=== PATIENT | male | born 1995 | race Caucasian/White ===

== ENCOUNTER 2021-08-09 13:54 | Emergency (ER) | payer SELFPAY ==
[2021-08-09] MEDS ORDERED: Sodium Chloride 0.9% 10 ML Syringe FLUSH PRN (14:24)
[2021-08-09] MEDS ORDERED: Ondansetron 4 MG/2 ML SDV IVPUSH ONE ×2 (14:24→17:39)
[2021-08-09] MEDS ORDERED: Sodium Chloride 0.9% 1,000 ML IV SCH (14:30)
--- NOTE | 2021-08-09 14:38 | EDM.PDOC ---
ED HPI GENERAL MEDICAL PROBLEM - General Chief Complaint: Gastrointestinal Problem Stated Complaint: FREDY AMB Time Seen by Provider: 08/09/21 14:18 - History of Present Illness INITIAL COMMENTS - FREE TEXT/NARRATIVE: 26-year-old male brought in by EMS with nausea vomiting abdominal pain and body cramps. Patient developed this nausea and vomiting earlier today following this he was breathing hard and developed this cramping sensation in his arms he could hardly move. This did improve. He was quite frightened by this. His past medical history is otherwise unremarkable. Not aware of any fevers or chills he lost his taste and smell several months ago with Covid. He has not had any breathing difficulties or shortness of breath no diarrhea. - Related Data Allergies Allergy/AdvReac Type Severity Reaction Status Date / Time No Known Allergies Allergy Verified 08/09/21 14:04 Home Meds: Home Meds FLUoxetine HCl [Prozac] 20 mg PO DAILY 07/22/18 [History] Ondansetron [Ondansetron ODT] 4 mg PO Q6H PRN #16 tab.rapdis 08/09/21 [Rx] busPIRone [Buspar] 15 mg PO DAILY 08/09/21 [History] Past Medical History - Past Health History Medical/Surgical History: Denies Medical/Surgical History Social & Family History - Family History Cardiac: Reports: Hypertension Oncologic: Reports: Lymphoma - Tobacco Use Tobacco Use Status *Q: Current Every Day Tobacco User Years of Tobacco use: 10 Packs/Tins Daily: 0.5 - Caffeine Use Caffeine Use: Reports: Soda - Recreational Drug Use Recreational Drug Type: Reports: Marijuana/Hashish Recreational Drug Use Frequency: Socially - Living Situation & Occupation Living situation: Reports: Single, with Family Occupation: Employed ED ROS GENERAL - Review of Systems Review Of Systems: See Below Constitutional: Reports: No Symptoms HEENT: Reports: No Symptoms Respiratory: Reports: No Symptoms Cardiovascular: Reports: No Symptoms GI/Abdominal: Reports: Nausea, Vomiting. Denies: Abdominal Pain, Diarrhea : Reports: No Symptoms Musculoskeletal: Reports: Other (He had extremity weakness spasm) Skin: Reports: No Symptoms Neurological: Reports: No Symptoms ED EXAM, GENERAL - Physical Exam Exam: See Below Exam Limited By: No Limitations General Appearance: Alert, No Apparent Distress, Other (Patient is doing well at this time) Eye Exam: Bilateral Eye: EOMI, Normal Inspection, PERRL Ears: Normal External Exam, Normal Canal, Hearing Grossly Normal, Normal TMs Nose: Normal Inspection, Normal Mucosa, No Blood Throat/Mouth: Normal Inspection, Normal Lips, Normal Teeth, Normal Gums, Normal Oropharynx, Normal Voice, No Airway Compromise Head: Atraumatic, Normocephalic Neck: Normal Inspection, Supple, Non-Tender, Full Range of Motion. No: Lymphadenopathy (L), Lymphadenopathy (R), Tender Lateral, Tender Midline Respiratory/Chest: No Respiratory Distress, Lungs Clear, Normal Breath Sounds Cardiovascular: Regular Rate, Rhythm, No Edema, No Murmur GI/Abdominal: Normal Bowel Sounds, Soft, Non-Tender Back Exam: Normal Inspection. No: CVA Tenderness (L), CVA Tenderness (R) Extremities: Normal Inspection, No Pedal Edema Neurological: Alert, Oriented, Normal Cognition Course - Vital Signs Last Recorded V/S: Last Vital Signs Temp 36.1 C 08/09/21 14:02 Pulse 91 08/09/21 17:30 Resp 16 08/09/21 17:30 BP 107/70 08/09/21 17:30 Pulse Ox 100 08/09/21 17:30 - Orders/Labs/Meds Orders: Active Orders 24 hr Category Date Time Status Communication Order [RC] ASDIRECTED Care 08/09/21 14:24 Active Communication Order [RC] ASDIRECTED Care 08/09/21 14:24 Active Communication Order [RC] ASDIRECTED Care 08/09/21 14:24 Active Communication Order [RC] ASDIRECTED Care 08/09/21 14:24 Active Orthostatic Vital Signs [RC] ASDIRECTED Care 08/09/21 14:24 Active Peripheral IV Care [RC] . DIRECTED Care 08/09/21 14:24 Active Vital Signs [RC] Q15M Care 08/09/21 18:19 Active EPINEPHrine [Adrenalin] Med 08/09/21 18:19 Active 0.3 mg IM ASDIRECTED PRN Famotidine [Pepcid] Med 08/09/21 18:19 Active 20 mg IVPUSH ASDIRECTED PRN Sodium Chloride 0.9% [Saline Flush] Med 08/09/21 14:24 Active 10 ml FLUSH ASDIRECTED PRN Sodium Chloride 0.9% [Saline Flush] Med 08/09/21 18:30 Active 30 ml FLUSH ASDIRECTED diphenhydrAMINE [Benadryl] Med 08/09/21 18:19 Active 50 mg IVPUSH ASDIRECTED PRN methylPREDNISolone Sod Succ [Solu-MEDROL] Med 08/09/21 18:19 Active 125 mg IVPUSH ASDIRECTED PRN Peripheral IV Insertion Adult [OM.PC] Stat Oth 08/09/21 14:24 Ordered Medication Orders Diphenhydramine HCl (Diphenhydramine 50 Mg/Ml Sdv) 50 mg IVPUSH ASDIRECTED PRN PRN Reason: hypersensitivity reaction Epinephrine HCl (Epinephrine 1 Mg/Ml Sdv) 0.3 mg IM ASDIRECTED PRN PRN Reason: hypersensitivity reaction Famotidine (Famotidine 20 Mg/2 Ml Sdv) 20 mg IVPUSH ASDIRECTED PRN PRN Reason: hypersensitivity reaction Methylprednisolone Sodium Succinate (Methylprednisolone Sodium Succinate 125 Mg/2 Ml Sdv) 125 mg IVPUSH ASDIRECTED PRN PRN Reason: hypersensitivity reaction Sodium Chloride (Sodium Chloride 0.9% 10 Ml Syringe) 10 ml FLUSH ASDIRECTED PRN PRN Reason: Keep Vein Open Last Admin: 08/09/21 14:38 Dose: 10 ml Documented by: ATUL Sodium Chloride (Sodium Chloride 0.9% 10 Ml Syringe) 30 ml FLUSH ASDIRECTED [facility] Labs: Laboratory Tests 08/09/21 08/09/21 08/09/21 Range/Units 14:45 14:45 14:45 WBC 14.84 H (4.23-9.07) K/mm3 RBC 5.69 (4.63-6.08) M/mm3 Hgb 15.8 (13.7-17.5) gm/dl Hct 47.6 (40.1-51.0) % MCV 83.7 (79.0-92.2) fl MCH 27.8 (25.7-32.2) pg MCHC 33.2 (32.2-35.5) g/dl RDW Std Deviation 40.3 (35.1-43.9) fL Plt Count 316 (163-337) K/mm3 MPV 10.2 (9.4-12.3) fl Neut % (Auto) 87.7 H (34.0-67.9) % Lymph % (Auto) 5.3 L (21.8-53.1) % [place] % (Auto) 6.5 (5.3-12.2) % Eos % (Auto) 0.1 L (0.8-7.0) Baso % (Auto) 0.1 (0.1-1.2) % Neut # (Auto) 13.00 H (1.78-5.38) K/mm3 Lymph # (Auto) 0.79 L (1.32-3.57) K/mm3 [place] # (Auto) 0.97 H (0.30-0.82) K/mm3 Eos # (Auto) 0.02 L (0.04-0.54) K/mm3 Baso # (Auto) 0.01 (0.01-0.08) K/mm3 Sodium 144 (136-145) mEq/L Potassium 3.1 L (3.5-5.1) mEq/L Chloride 106 (98-107) mEq/L Carbon Dioxide 23 (21-32) mEq/L Anion Gap 18.1 H (5-15) BUN 14 (7-18) mg/dL Creatinine 1.0 (0.7-1.3) mg/dL Est Cr Clr Drug Dosing TNP Estimated GFR (MDRD) > 60 (>60) mL/min BUN/Creatinine Ratio 14.0 (14-18) Glucose 105 H (70-99) mg/dL Calcium 9.2 (8.5-10.1) mg/dL Magnesium 1.5 L (1.8-2.4) mg/dL Ferritin (26-388) ng/ml Total Bilirubin 0.7 (0.2-1.0) mg/dL AST 14 L (15-37) U/L ALT 33 (16-63) U/L Alkaline Phosphatase 44 L (46-116) U/L Lactate Dehydrogenase 162 (85-227) U/L C-Reactive Protein 0.4 (<1.0) mg/dL Total Protein 7.9 (6.4-8.2) g/dl Albumin 4.3 (3.4-5.0) g/dl Globulin 3.6 gm/dL Albumin/Globulin Ratio 1.2 (1-2) Lipase 53 L (73-393) U/L Influenza Type A RNA (NEGATIVE) Influenza Type B RNA (NEGATIVE) SARS-CoV-2 RNA (JOHN PAUL) (NEGATIVE) 08/09/21 08/09/21 Range/Units 14:45 14:52 WBC (4.23-9.07) K/mm3 RBC (4.63-6.08) M/mm3 Hgb (13.7-17.5) gm/dl Hct (40.1-51.0) % MCV (79.0-92.2) fl MCH (25.7-32.2) pg MCHC (32.2-35.5) g/dl RDW Std Deviation (35.1-43.9) fL Plt Count (163-337) K/mm3 MPV (9.4-12.3) fl Neut % (Auto) (34.0-67.9) % Lymph % (Auto) (21.8-53.1) % [place] % (Auto) (5.3-12.2) % Eos % (Auto) (0.8-7.0) Baso % (Auto) (0.1-1.2) % Neut # (Auto) (1.78-5.38) K/mm3 Lymph # (Auto) (1.32-3.57) K/mm3 [place] # (Auto) (0.30-0.82) K/mm3 Eos # (Auto) (0.04-0.54) K/mm3 Baso # (Auto) (0.01-0.08) K/mm3 Sodium (136-145) mEq/L Potassium (3.5-5.1) mEq/L Chloride (98-107) mEq/L Carbon Dioxide (21-32) mEq/L Anion Gap (5-15) BUN (7-18) mg/dL Creatinine (0.7-1.3) mg/dL Est Cr Clr Drug Dosing Estimated GFR (MDRD) (>60) mL/min BUN/Creatinine Ratio (14-18) Glucose (70-99) mg/dL Calcium (8.5-10.1) mg/dL Magnesium (1.8-2.4) mg/dL Ferritin 222 (26-388) ng/ml Total Bilirubin (0.2-1.0) mg/dL AST (15-37) U/L ALT (16-63) U/L Alkaline Phosphatase (46-116) U/L Lactate Dehydrogenase (85-227) U/L C-Reactive Protein (<1.0) mg/dL Total Protein (6.4-8.2) g/dl Albumin (3.4-5.0) g/dl Globulin gm/dL Albumin/Globulin Ratio (1-2) Lipase (73-393) U/L Influenza Type A RNA Negative (NEGATIVE) Influenza Type B RNA Negative (NEGATIVE) SARS-CoV-2 RNA (JOHN PAUL) Positive H (NEGATIVE) Meds: Medications Generic Name Dose Route Start Last Admin Trade Name Freq PRN Reason Stop Dose Admin Diphenhydramine HCl 50 mg 08/09/21 18:19 Diphenhydramine 50 Mg/Ml Sdv IVPUSH ASDIRECTED PRN hypersensitivity reaction Epinephrine HCl 0.3 mg 08/09/21 18:19 Epinephrine 1 Mg/Ml Sdv IM ASDIRECTED PRN hypersensitivity reaction Famotidine 20 mg 08/09/21 18:19 Famotidine 20 Mg/2 Ml Sdv IVPUSH ASDIRECTED PRN hypersensitivity reaction Methylprednisolone Sodium Succinate 125 mg 08/09/21 18:19 Methylprednisolone Sodium Succinate 125 Mg/2 Ml Sdv IVPUSH ASDIRECTED PRN hypersensitivity reaction Sodium Chloride 10 ml 08/09/21 14:24 08/09/21 14:38 Sodium Chloride 0.9% 10 Ml Syringe FLUSH 10 ml ASDIRECTED PRN Administration Keep Vein Open Sodium Chloride 30 ml 08/09/21 18:30 Sodium Chloride 0.9% 10 Ml Syringe FLUSH ASDIRECTED ETHAN Discontinued Medications Generic Name Dose Route Start Last Admin Trade Name Aldair PRN Reason Stop Dose Admin Sodium Chloride 1,000 mls @ 999 mls/hr 08/09/21 14:30 08/09/21 14:38 Normal Saline IV 08/09/21 15:29 999 mls/hr Q1H ETHAN Administration CASIRIVIMAB/IMDEVIMAB 10 ml/ 110 mls @ 220 mls/hr 08/09/21 18:19 08/09/21 19:27 Sodium Chloride IV 08/09/21 18:48 220 mls/hr ONETIME ONE Administration Lorazepam 1 mg 08/09/21 18:19 08/09/21 18:29 Lorazepam 2 Mg/Ml Sdv IVPUSH 08/09/21 18:20 1 mg ONETIME ONE Administration Ondansetron HCl 4 mg 08/09/21 14:24 08/09/21 14:38 Ondansetron 4 Mg/2 Ml Sdv IVPUSH 08/09/21 14:25 Not Given ONETIME ONE Ondansetron HCl Confirm 08/09/21 17:35 08/09/21 17:54 Ondansetron 4 Mg/2 Ml Sdv Administered 08/09/21 17:36 Not Given Dose 4 mg .ROUTE .STK-MED ONE Ondansetron HCl 4 mg 08/09/21 17:39 08/09/21 17:54 Ondansetron 4 Mg/2 Ml Sdv IVPUSH 08/09/21 17:40 4 mg ONETIME ONE Administration Potassium Chloride 40 meq 08/09/21 16:11 08/09/21 19:33 Potassium Chloride 20 Meq Tab.Er PO 08/09/21 16:12 Not Given ONETIME ONE Potassium Chloride 40 meq 08/09/21 19:29 08/09/21 19:33 Potassium Chloride 20 Meq Tab.Er PO 08/09/21 19:30 40 meq ONETIME ONE Administration - Re-Assessments/Exams Free Text/Narrative Re-Assessment/Exam: 08/09/21 18:17 Patient is early with his Covid infection labs are mild at this point and not necessarily can be suggestive of Covid however he seems to be getting worse since the onset. We discussed the pros and cons of Regeneron and he should like to give it a try. I spoke with the patient to provide information about REGEN-COV treatment. I offered them the Patient and Caregiver EUA REGEN-COV Fact Sheet to read and review. I stated the drug has been approved by an emergency use authorization (EUA} process and has not fully been FDA reviewed or approved. The patient meets the EUA requirements. I discussed there are other potential treatment options that are currently not FDA approved to treat COVID 19. Offered opportunity to ask questions and all questions were answered. The patient voiced understanding and agreed to proceed with treatment. 08/09/21 19:40 Patient is doing better I did give him some Ativan for his anxiety. Apparently he did not get his potassium chloride so I put a new order in for this I will also send him home with 2 20 mEq tablets to take 1 twice daily tomorrow. I am off shift and will send a prescription to the [place] pharmacy in [facility] for Jacky that his parents can pick up driver while he is continued with the infusion. Departure - Departure Time of Disposition: 19:41 Disposition: Home, Self-Care 01 Clinical Impression: COVID-19, Nausea and vomiting - Discharge Information Referrals: PCP,None [Primary Care Provider] - Forms: ED Department Discharge Additional Instructions: Return to the emergency room with any questions problems or worsening symptoms. Tylenol as needed for fever and discomfort. I sent a prescription to the [place] pharmacy in the [facility] grocery store for Jacky, this is the antinausea medication 1 of these will dissolve all of on or under your tongue if needed take 1 every 6 hours as needed. Stay in isolation for 8 days after the onset of symptoms or 4 days after you are absolutely symptom-free without the aid of medications what ever is longer Sepsis Event Note (ED) - Evaluation Sepsis Screening Result: No Definite Risk - Focused Exam Vital Signs: Vital Signs Temp Pulse Resp BP Pulse Ox 08/09/21 17:30 91 16 107/70 100 08/09/21 16:00 88 12 108/70 100 08/09/21 15:00 85 16 110/70 100 08/09/21 14:02 36.1 C 88 16 114/94 H 100 - My Orders Last 24 Hours: My Active Orders 08/09/21 14:24 Communication Order [RC] ASDIRECTED Communication Order [RC] ASDIRECTED Communication Order [RC] ASDIRECTED Communication Order [RC] ASDIRECTED Orthostatic Vital Signs [RC] ASDIRECTED Peripheral IV Care [RC] . DIRECTED Sodium Chloride 0.9% [Saline Flush] 10 ml FLUSH ASDIRECTED PRN Peripheral IV Insertion Adult [OM.PC] Stat 08/09/21 18:19 Vital Signs [RC] Q15M EPINEPHrine [Adrenalin] 0.3 mg IM ASDIRECTED PRN Famotidine [Pepcid] 20 mg IVPUSH ASDIRECTED PRN diphenhydrAMINE [Benadryl] 50 mg IVPUSH ASDIRECTED PRN methylPREDNISolone Sod Succ [Solu-MEDROL] 125 mg IVPUSH ASDIRECTED PRN 08/09/21 18:30 Sodium Chloride 0.9% [Saline Flush] 30 ml FLUSH ASDIRECTED - Assessment/Plan Last 24 Hours: My Active Orders 08/09/21 14:24 Communication Order [RC] ASDIRECTED Communication Order [RC] ASDIRECTED Communication Order [RC] ASDIRECTED Communication Order [RC] ASDIRECTED Orthostatic Vital Signs [RC] ASDIRECTED Peripheral IV Care [RC] . DIRECTED Sodium Chloride 0.9% [Saline Flush] 10 ml FLUSH ASDIRECTED PRN Peripheral IV Insertion Adult [OM.PC] Stat 08/09/21 18:19 Vital Signs [RC] Q15M EPINEPHrine [Adrenalin] 0.3 mg IM ASDIRECTED PRN Famotidine [Pepcid] 20 mg IVPUSH ASDIRECTED PRN diphenhydrAMINE [Benadryl] 50 mg IVPUSH ASDIRECTED PRN methylPREDNISolone Sod Succ [Solu-MEDROL] 125 mg IVPUSH ASDIRECTED PRN 08/09/21 18:30 Sodium Chloride 0.9% [Saline Flush] 30 ml FLUSH ASDIRECTED
[2021-08-09 14:53] LABS: CORONAVIRUS COVID-19 NAA POSITIVE (NEGATIVE)
--- NOTE | 2021-08-09 15:57 | CR ---
Chest: Frontal view of the chest was obtained. Comparison: No prior chest imaging is available. Heart size and mediastinum are normal. Lungs are clear with no acute parenchymal change. Slight scoliosis is noted within the spine. No acute bony abnormality is seen. Impression: 1. Nothing acute is seen on frontal chest x-ray. Diagnostic code #2
[2021-08-09] MEDS ORDERED: Potassium Chloride 20 MEQ Tab.ER PO ONE ×3 (16:11→19:43)
[2021-08-09] MEDS ORDERED: Ondansetron 4 MG/2 ML SDV ONE (17:35)
[2021-08-09 17:41] VITALS: BP 107/70; PULSE 91
[2021-08-09] MEDS ORDERED: methylPREDNISolone Sodium Succinate 125 MG/2 ML SDV IVPUSH PRN (18:19)
[2021-08-09] MEDS ORDERED: Famotidine 20 MG/2 ML SDV IVPUSH PRN (18:19)
[2021-08-09] MEDS ORDERED: LORazepam 2 MG/ML SDV IVPUSH ONE (18:19)
[2021-08-09] MEDS ORDERED: EPINEPHrine 1 MG/ML SDV IM PRN (18:19)
[2021-08-09] MEDS ORDERED: diphenhydrAMINE 50 MG/ML SDV IVPUSH PRN (18:19)
[2021-08-09] MEDS ORDERED: Sodium Chloride 0.9% 10 ML Syringe FLUSH SCH (18:30)
== END 2021-08-09 21:06 | disposition home or self-care (01) ==
LOC: JD.ED 13:54
DX: R11.2 Nausea with vomiting, unspecified (principal); U07.1 COVID-19; Z72.0 Tobacco use
CPT/HCPCS: 0240U; 36415; 71045; 80053; 82728; 83615; 83690; 83735; 85025; 86140; 96374; 96375; 99284; A9270; J2060; J2405; J7030; M0243; Q0243

== ENCOUNTER 2021-09-07 12:45 | Emergency (ER) | payer OTHER ==
[2021-09-07 12:56] VITALS: BP 152/92; PULSE 83
--- NOTE | 2021-09-07 13:14 | EDM.PDOC ---
ED HPI GENERAL MEDICAL PROBLEM - General Chief Complaint: Respiratory Problem Stated Complaint: SOB CHEST PAIN Time Seen by Provider: 09/07/21 13:01 - History of Present Illness INITIAL COMMENTS - FREE TEXT/NARRATIVE: 26-year-old male presents the emergency room with chest pain and shortness of breath. Patient was treated for Covid with monoclonal antibodies almost a month ago. Since that time he noticed that his antianxiety treatment is not as effective as it used to be. However, yesterday he developed flulike symptoms midday with chills and sweats generally achy all over and not feeling well. He has had little bit of an upset stomach some nausea no vomiting. It does hurt from to take a deep breath in. He does not have a cough. But is generally achy all over. He is somewhat concerned about it being worsening anxiety - Related Data Allergies Allergy/AdvReac Type Severity Reaction Status Date / Time No Known Allergies Allergy Verified 08/09/21 14:04 Home Meds: Home Meds FLUoxetine HCl [Prozac] 20 mg PO DAILY 07/22/18 [History] Ondansetron [Ondansetron ODT] 4 mg PO Q6H PRN #16 tab.rapdis 08/09/21 [Rx] busPIRone [Buspar] 15 mg PO DAILY 08/09/21 [History] Past Medical History - Past Health History Medical/Surgical History: Denies Medical/Surgical History Psychiatric History: Reports: Anxiety, Depression - Infectious Disease History Infectious Disease History: Reports: Novel Coronavirus Social & Family History - Family History Cardiac: Reports: Hypertension Oncologic: Reports: Lymphoma - Tobacco Use Tobacco Use Status *Q: Current Some Day Tobacco User Years of Tobacco use: 10 Packs/Tins Daily: 5 - Caffeine Use Caffeine Use: Reports: Coffee, Energy Drinks Caffeine Use Comment: states hasnt drank this in 2 days - Recreational Drug Use Recreational Drug Use: Yes Recreational Drug Type: Reports: Marijuana/Hashish Recreational Drug Use Frequency: Weekly - Living Situation & Occupation Living situation: Reports: Single, with Family Occupation: Employed ED ROS GENERAL - Review of Systems Review Of Systems: See Below Constitutional: Reports: Chills, Diaphoresis HEENT: Reports: No Symptoms Respiratory: Reports: Pleuritic Chest Pain. Denies: Cough, Sputum, Hemoptysis Cardiovascular: Reports: Chest Pain Endocrine: Reports: No Symptoms GI/Abdominal: Reports: Decreased Appetite, Nausea. Denies: Abdominal Pain : Reports: No Symptoms Musculoskeletal: Reports: Other (Generalized muscle and joint discomfort) Skin: Reports: No Symptoms Neurological: Reports: No Symptoms Psychiatric: Reports: Anxiety Hematologic/Lymphatic: Reports: No Symptoms ED EXAM, GENERAL - Physical Exam Exam: See Below Exam Limited By: Uncooperative General Appearance: Alert, Obese, Other (He is moderately diaphoretic and thinks he has been this way since yesterday afternoon) Eye Exam: Bilateral Eye: Normal Inspection Ears: Normal External Exam, Normal Canal, Hearing Grossly Normal, Normal TMs Nose: Normal Inspection, Normal Mucosa, No Blood Throat/Mouth: Normal Inspection, Normal Lips, Normal Teeth, Normal Gums, Normal Oropharynx, Normal Voice, No Airway Compromise Head: Atraumatic, Normocephalic Neck: Normal Inspection, Supple, Non-Tender, Full Range of Motion. No: Lymp hadenopathy (L), Lymphadenopathy (R) Respiratory/Chest: No Respiratory Distress, Lungs Clear, Normal Breath Sounds, No Accessory Muscle Use, Chest Non-Tender Cardiovascular: Normal Peripheral Pulses, Regular Rate, Rhythm, No Edema, No Gallop, No Murmur, No Rub GI/Abdominal: Normal Bowel Sounds, Soft, Non-Tender Neurological: Alert, Oriented, Normal Cognition Psychiatric: Normal Affect, Normal Mood Skin Exam: Diaphoretic Lymphatic: No Adenopathy #1 Interpretation EKG Date: 09/07/21 Rhythm: NSR Rate (Beats/Min): 84 [place]: Normal P-Wave: Present QRS: Normal ST-T: Normal QT: Normal Comparison: NA - No Prior EKG EKG Interpretation Comments: Normal EKG Course - Vital Signs Last Recorded V/S: Last Vital Signs Temp 36.1 C 09/07/21 12:52 Pulse 83 09/07/21 12:52 Resp 20 09/07/21 12:52 BP 152/92 H 09/07/21 12:52 Pulse Ox 100 09/07/21 12:52 - Orders/Labs/Meds Orders: Active Orders 24 hr Category Date Time Status Chest 1V Frontal [CR] Stat Exams 09/07/21 13:03 Taken Labs: Laboratory Tests 09/07/21 09/07/21 09/07/21 Range/Units 13:01 13:23 13:23 WBC 5.74 (4.23-9.07) K/mm3 RBC 5.45 (4.63-6.08) M/mm3 Hgb 15.3 (13.7-17.5) gm/dl Hct 44.9 (40.1-51.0) % MCV 82.4 (79.0-92.2) fl MCH 28.1 (25.7-32.2) pg MCHC 34.1 (32.2-35.5) g/dl RDW Std Deviation 38.7 (35.1-43.9) fL Plt Count 270 (163-337) K/mm3 MPV 10.4 (9.4-12.3) fl Neutrophils % (Manual) 85 H (40-60) % Band Neutrophils % 0 (0-10) % Lymphocytes % (Manual) 12 L (20-40) % Atypical Lymphs % 0 % Monocytes % (Manual) 3 (2-10) % Eosinophils % (Manual) 0 L (0.8-7.0) % Basophils % (Manual) 0 L (0.2-1.2) Platelet Estimate Adequate RBC Morph Comment Normal D-Dimer, Quantitative < 0.19 L (0.19-0.50) mg/L Sodium (136-145) mEq/L Potassium (3.5-5.1) mEq/L Chloride (98-107) mEq/L Carbon Dioxide (21-32) mEq/L Anion Gap (5-15) BUN (7-18) mg/dL Creatinine (0.7-1.3) mg/dL Est Cr Clr Drug Dosing mL/min Estimated GFR (MDRD) (>60) mL/min BUN/Creatinine Ratio (14-18) Glucose (70-99) mg/dL Calcium (8.5-10.1) mg/dL Total Bilirubin (0.2-1.0) mg/dL AST (15-37) U/L ALT (16-63) U/L Alkaline Phosphatase (46-116) U/L Troponin I (0.00-0.056) ng/mL C-Reactive Protein (<1.0) mg/dL Total Protein (6.4-8.2) g/dl Albumin (3.4-5.0) g/dl Globulin gm/dL Albumin/Globulin Ratio (1-2) Influenza Type A RNA Positive H (NEGATIVE) Influenza Type B RNA Negative (NEGATIVE) SARS-CoV-2 RNA (JOHN PAUL) Positive H (NEGATIVE) 09/07/21 Range/Units 13:23 WBC (4.23-9.07) K/mm3 RBC (4.63-6.08) M/mm3 Hgb (13.7-17.5) gm/dl Hct (40.1-51.0) % MCV (79.0-92.2) fl MCH (25.7-32.2) pg MCHC (32.2-35.5) g/dl RDW Std Deviation (35.1-43.9) fL Plt Count (163-337) K/mm3 MPV (9.4-12.3) fl Neutrophils % (Manual) (40-60) % Band Neutrophils % (0-10) % Lymphocytes % (Manual) (20-40) % Atypical Lymphs % % Monocytes % (Manual) (2-10) % Eosinophils % (Manual) (0.8-7.0) % Basophils % (Manual) (0.2-1.2) Platelet Estimate RBC Morph Comment D-Dimer, Quantitative (0.19-0.50) mg/L Sodium 139 (136-145) mEq/L Potassium 3.4 L (3.5-5.1) mEq/L Chloride 103 (98-107) mEq/L Carbon Dioxide 21 (21-32) mEq/L Anion Gap 18.4 H (5-15) BUN 13 (7-18) mg/dL Creatinine 0.9 (0.7-1.3) mg/dL Est Cr Clr Drug Dosing 138.10 mL/min Estimated GFR (MDRD) > 60 (>60) mL/min BUN/Creatinine Ratio 14.4 (14-18) Glucose 94 (70-99) mg/dL Calcium 8.7 (8.5-10.1) mg/dL Total Bilirubin 0.6 (0.2-1.0) mg/dL AST 23 (15-37) U/L ALT 53 (16-63) U/L Alkaline Phosphatase 47 (46-116) U/L Troponin I < 0.017 (0.00-0.056) ng/mL C-Reactive Protein 1.5 H* (<1.0) mg/dL Total Protein 8.3 H (6.4-8.2) g/dl Albumin 4.3 (3.4-5.0) g/dl Globulin 4.0 gm/dL Albumin/Globulin Ratio 1.1 (1-2) Influenza Type A RNA (NEGATIVE) Influenza Type B RNA (NEGATIVE) SARS-CoV-2 RNA (JOHN PAUL) (NEGATIVE) Meds: Medications Discontinued Medications Generic Name Dose Route Start Last Admin Trade Name Aldair PRN Reason Stop Dose Admin Acetaminophen 975 mg 09/07/21 17:20 Acetaminophen 325 Mg Tab PO 09/07/21 17:21 NOW ONE Lorazepam 1 mg 09/07/21 15:31 Lorazepam 2 Mg/Ml Sdv IVPUSH 09/07/21 15:32 ONETIME ONE Lorazepam 2 mg 09/07/21 15:43 09/07/21 15:56 Lorazepam 2 Mg/Ml Sdv IM 09/07/21 15:44 2 mg ONETIME ONE Administration - Re-Assessments/Exams Free Text/Narrative Re-Assessment/Exam: 09/07/21 17:21 Patient's influenza A is positive as is his Covid which I would expect this close to his recent illness. Patient is doing much better after some Ativan his work-up is otherwise unremarkable. He is symptoms have been on for over 48 hours not a good candidate for Tamiflu. Departure - Departure Time of Disposition: 17:24 Disposition: Home, Self-Care 01 Clinical Impression: Influenza A, Anxiety - Discharge Information Instructions: Influenza, Adult, [id number] Referrals: Zachary Calloway MD [Primary Care Provider] - Forms: ED Department Discharge Additional Instructions: Return to the emergency room with any questions problems or worsening symptoms. Push plenty of fluids eat you have the flu Tylenol and/or Motrin as needed. I have given you a few Ativan take 1 twice daily only if absolutely necessary for your anxiety. Allow 12 hours after using this medication before driving or returning to work. Follow-up with Dr. Ortiz this next week. Sepsis Event Note (ED) - Focused Exam Vital Signs: Vital Signs Temp Pulse Resp BP Pulse Ox 09/07/21 12:52 36.1 C 83 20 152/92 H 100 - My Orders Last 24 Hours: My Active Orders 09/07/21 13:03 Chest 1V Frontal [CR] Stat - Assessment/Plan Last 24 Hours: My Active Orders 09/07/21 13:03 Chest 1V Frontal [CR] Stat
[2021-09-07 14:28] LABS: CORONAVIRUS COVID-19 NAA POSITIVE (NEGATIVE)
[2021-09-07] MEDS ORDERED: LORazepam 2 MG/ML SDV IVPUSH ONE (15:31)
[2021-09-07] MEDS ORDERED: LORazepam 2 MG/ML SDV IM ONE (15:43)
[2021-09-07] MEDS ORDERED: Acetaminophen 325 MG Tab PO ONE (17:20)
--- NOTE | 2021-09-09 14:02 | CR ---
EXAM: XR CHEST 1 VIEW LOCATION: [facility] DATE/TIME: 09/07/2021 1:05 PM INDICATION: Dyspnea COMPARISON: None. IMPRESSION: Negative chest. SIGNED BY: Hadley Lowe MD 09/09/2021 12:[address] [facility]
== END 2021-09-07 17:34 | disposition home or self-care (01) ==
LOC: JD.ED 12:45
DX: F41.9 Anxiety disorder, unspecified (principal); J10.1 Influenza due to other identified influenza virus with other respiratory manifestations; Z72.0 Tobacco use; Z20.822 Contact with and (suspected) exposure to COVID-19
CPT/HCPCS: 0240U; 36415; 71045; 80053; 84484; 85007; 85027; 85379; 86140; 93005; 96372; 99285; A9270; J2060

== ENCOUNTER 2022-01-12 10:24 | Emergency (ER) | payer OTHER ==
[2022-01-12] MEDS ORDERED: Famotidine 20 MG/2 ML SDV IVPUSH ONE (11:00)
[2022-01-12] MEDS ORDERED: Lactated Ringers 1,000 ML IV ONE (11:00)
[2022-01-12] MEDS ORDERED: Ondansetron 4 MG/2 ML SDV IVPUSH ONE (11:00)
[2022-01-12] MEDS ORDERED: LORazepam 2 MG/ML SDV IVPUSH ONE (11:44)
[2022-01-12 14:06] VITALS: BP 126/80; PULSE 86
== END 2022-01-12 13:19 | disposition home or self-care (01) ==
LOC: JD.ED 10:24
DX: R11.2 Nausea with vomiting, unspecified (principal); R19.7 Diarrhea, unspecified; Z86.16 Personal history of COVID-19; Z87.891 Personal history of nicotine dependence
CPT/HCPCS: 36415; 80053; 83605; 83690; 83735; 85025; 87045; 87046; 87899; 96374; 96375; 99284; J2060; J2405; J3490; J7120

== ENCOUNTER 2022-10-15 07:00 | Emergency (ER) | payer OTHER ==
[2022-10-15] MEDS ORDERED: Ondansetron 4 MG/2 ML SDV IVPUSH ONE (07:29)
[2022-10-15] MEDS ORDERED: Lactated Ringers 1,000 ML IV ONE ×2 (07:29→09:55)
[2022-10-15 08:27] LABS: CORONAVIRUS COVID-19 NAA NEGATIVE (NEGATIVE)
[2022-10-15] MEDS ORDERED: Iopamidol 612 MG/ML 50 ML SDV IVPUSH ONE (10:57)
[2022-10-15] MEDS ORDERED: Sodium Chloride 0.9% 10 ML Syringe FLUSH PRN (10:57)
[2022-10-15] MEDS ORDERED: Iopamidol 612 MG/ML 100 ML Bottle IVPUSH ONE (10:57)
[2022-10-15] MEDS ORDERED: LORazepam 2 MG/ML SDV IVPUSH ONE (11:35)
[2022-10-15] MEDS ORDERED: Metoclopramide 10 MG/2 ML SDV IVPUSH ONE (11:50)
[2022-10-15] MEDS ORDERED: diphenhydrAMINE 50 MG/ML SDV IVPUSH ONE (11:50)
[2022-10-15 13:47] VITALS: BP 115/56; PULSE 97
== END 2022-10-15 13:49 | disposition home or self-care (01) ==
LOC: JD.ED 07:00
DX: R11.2 Nausea with vomiting, unspecified (principal); R10.9 Unspecified abdominal pain; Z86.16 Personal history of COVID-19; Z20.822 Contact with and (suspected) exposure to COVID-19
CPT/HCPCS: 0240U; 36415; 71045; 74177; 80053; 81001; 82947; 83605; 83690; 84484; 85025; 93005; 96361; 96374; 96375; 99284; J1200; J2060; J2405; J2765; J3490; J7120; Q9967; 93010